=== PATIENT | female | born 1975 | race Caucasian/White ===

== ENCOUNTER 2017-06-22 16:41 | Emergency (ER) | payer SELFPAY ==
[~2017-06-22 16:41] MED LIST: CALC-627 PO; CYAN100080 PO; FERR27TA PO; PREN1TAB49 PO
== END 2017-06-22 18:07 | disposition left against medical advice (07) ==
LOC: E/R 16:41
DX: Z53.21 Procedure and treatment not carried out due to patient leaving prior to being seen by health care provider (principal)